=== PATIENT | male | born 1950 | race Caucasian/White ===

== ENCOUNTER 2017-09-24 18:24 | Emergency (ER) | payer OTHER ==
--- OUTSIDE RECORDS SUMMARY | 2017-09-24 18:28 | XMS REPORT ---
:1950 External Reference #:[id number] Author Organization [facility] Address [address] [address] Phone [phone] Care Team Providers Name Role Phone Robi Hays MD Primary Care Physician Unavailable Payers Type Date Identification Numbers Payment Provider Subscriber Health Maintenance Policy Number: P Health [employer] (HMO) [id number] Hmo PayID: [id number] Attn Hmo Claims Dept [address] [place] [address] Problems Description No Information Family History Date Family Member(s) Problem(s) Comments General Diabetes Type II Maternal Grandfather Mother Diabetes Type II Social History Type Date Description Comments Occupation Retired ETOH Use Denies alcohol use Smoking Patient has never smoked Recreational Drug Use Denies Drug Use Exercise Type/Frequency Exercises sporadically Allergies, Adverse Reactions, Alerts Date Description Reaction Status Severity Comments 09/10/2017 NKDA active Medications Medication Date Status Form Strength Qnty SIG Indications Ordering Provider Fenofibrate / Active Tablets 160mg 1 by mouth Unknown 0000 every day Lantus / Active Solution 100Unit/ML 24 units Unknown 0000 as directed Metformin HCL / Active Tablets 1000mg 1 by mouth Unknown 0000 twice a day Perindopril / Active Tablets 8mg 1 tab po Unknown Erbumine 0000 qd Simvastatin / Active Tablets 40mg take 1 Unknown 0000 tablet by mouth at bedtime Victoza / Active Solution 18mg/3ML inject 1.8 Unknown 0000 Pen-Inject mg daily Vitamin D3 / Active Tablets 2000 1 by mouth Unknown Complete 0000 every day Acetaminophen 00/00/ Hx Tablets 500mg 1 tab po Unknown 0000 - q6hrs as 2017 Aspirin Adult / Hx Tablets DR 81mg 1 by mouth Unknown Low Dose 0000 - every day 2017 Sildenafil / Hx Tablets 20mg 1 by mouth Unknown Citrate 0000 - po qd as 2017 Vital Signs Date Vital Result Comment 09/13/2017 Height 74 inches 6'2" Weight 296.12 lb Heart Rate 88 /min BP Systolic Sitting 134 mmHg BP Diastolic Sitting 72 mmHg Respiratory Rate 16 /min BMI (Body Mass Index) 38.0 kg/m2 Results Description No Information Procedures Description No Information Plan of Care Future Appointment(s):03/22/2018 8:45 am - Alfonzo Richard M.D. at [facility]09/13/2017 - Alfonzo Richard M.D.G31.84 Mild cognitive impairment, so statedNew Labs:TSH (Thyroid Stim Horm)Free T4 (Free Thyroxine)T3 TotalFollow up:6 months
--- NOTE | 2017-09-24 19:01 | UC ---
Respiratory Complaint HPI - HPI Summary HPI Summary: Patient urgent care this afternoon with harsh cough awakening the night coughing. - History of Current Complaint Chief Complaint: UCRespiratory Stated Complaint: DIFFICULTY BREATHING,COUGH Time Seen by Provider: 09/24/17 18:53 Hx Obtained From: Patient Onset/Duration: Sudden Onset, Lasting Days - 1, Still Present Timing: Constant Pain Intensity: 0 Character: Cough: Productive Aggravating Factors: Nothing Alleviating Factors: Nothing Associated Signs And Symptoms: Positive: Pleuritic Chest Pain, URI - Allergies/Home Medications Allergies/Adverse Reactions: Allergies Allergy/AdvReac Type Severity Reaction Status Date / Time No Known Allergies Allergy Verified 09/24/17 18:36 Home Medications: Home Medications Cholecalciferol (Vitamin D3) [Vitamin D3] 2,000 unit PO DAILY 09/24/17 [History Confirmed 09/24/17] Fenofibrate Nanocrystallized [Triglide] 160 mg PO DAILY 09/24/17 [History Confirmed 09/24/17] Glimepiride 4 mg PO DAILY 09/24/17 [History Confirmed 09/24/17] Insulin GLARGINE(*) [Lantus(*)] 0 units SUBCUT Q24H 09/24/17 [History Confirmed 09/24/17] Liraglutide [Victoza 3-Ju] 18 mg SC DAILY 09/24/17 [History Confirmed 09/24/17] Perindopril Erbumine 8 mg PO DAILY 09/24/17 [History Confirmed 09/24/17] Pyridoxine HCl (Vitamin B6) [Vitamin B-6] 25 mg PO DAILY 09/24/17 [History Confirmed 09/24/17] Simvastatin [Zocor] 40 mg PO DAILY 09/24/17 [History Confirmed 09/24/17] metFORMIN* [Glucophage 1000 MG TAB *] 1,000 mg PO BID 09/24/17 [History Confirmed 09/24/17] PMH/Surg Hx/FS Hx/Imm Hx Previously Healthy: No Endocrine History: Diabetes, Dyslipidemia - Surgical History Surgical History: Yes Surgery Procedure, Year, and Place: 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 BONE FRAGMENTS TAKEN OUT OF RIGHT ELBOW 1987. DEVIATED SEPTUM REPAIR 1997. t&a at age 2 - Family History Known Family History: Positive: None - Social History Occupation: Retired Lives: With Family Alcohol Use: Rare Substance Use Type: None Smoking Status (MU): Never Smoked Tobacco Review of Systems Constitutional: Negative Skin: Negative Eyes: Negative ENT: Negative Respiratory: Cough Cardiovascular: Negative Gastrointestinal: Negative Genitourinary: Negative Motor: Negative Neurovascular: Negative Musculoskeletal: Negative Neurological: Negative Psychological: Negative Is Patient Immunocompromised?: No All Other Systems Reviewed And Are Negative: Yes Physical Exam Triage Information Reviewed: Yes Appearance: Well-Appearing, No Pain Distress, Obese Vital Signs: Initial Vital Signs Temp 97.7 F 09/24/17 18:30 Pulse 84 09/24/17 18:30 Resp 16 09/24/17 18:30 BP 125/63 09/24/17 18:30 Pulse Ox 99 09/24/17 18:30 Vital Signs Reviewed: Yes Eye Exam: Normal Eyes: Positive: Conjunctiva Clear ENT Exam: Normal ENT: Positive: Normal ENT inspection, Hearing grossly normal, Pharynx normal, Nasal congestion, TMs normal, Uvula midline. Negative: Nasal drainage, Tonsillar swelling, Tonsillar exudate, Trismus, Muffled voice, Hoarse voice, Dental tenderness, Sinus tenderness Dental Exam: Normal Neck exam: Normal Neck: Positive: Supple, Nontender Respiratory Exam: Normal Respiratory: Positive: Chest non-tender, Lungs clear, Normal breath sounds, No respiratory distress, No accessory muscle use Cardiovascular Exam: Normal Cardiovascular: Positive: RRR, No Murmur, Pulses Normal, Brisk Capillary Refill Musculoskeletal Exam: Normal Musculoskeletal: Positive: Strength Intact, ROM Intact, No Edema Neurological Exam: Normal Neurological: Positive: Alert, Muscle Tone Normal Psychological Exam: Normal Skin Exam: Normal UC Diagnostic Evaluation - Laboratory O2 Sat by Pulse Oximetry: 99 Respiratory Course/Dx - Course Course Of Treatment: Robitussin with codeine for cough, albuterol when necessary for bronchospastic cough, may start Zithromax should symptoms worsen or fail to improve. Follow with primary care doctor - Differential Dx/Diagnosis Provider Diagnoses: Bronchitis Discharge - Sign-Out/Discharge Documenting (check all that apply): Discharge - Discharge Plan Condition: Stable Disposition: HOME Prescriptions: Albuterol HFA INHALER* [Ventolin HFA Inhaler*] 2 puff INH Q4H PRN #1 mdi PRN Reason: cough/wheeze Azithromycin TAB* [Zithromax TAB (Z-JU) 250 mg #6 tabs] 2 tab PO .TODAY, THEN 1 DAILY #1 ju guaiFENesin/CODIEN 100MG-10MG* [Robitussin AC 100Mg-10Mg*] 5 - 10 ml PO Q4H PRN #120 udc MDD 40ml PRN Reason: cough Patient Education Materials: How to Use a Metered-Dose Inhaler (ED), Acute Bronchitis (ED) Referrals: Robi Hays MD [Primary Care Provider] - If Needed - Billing Disposition and Condition Condition: STABLE Disposition: HOME
[2017-09-24 19:17] VITALS: BP 125/63
== END 2017-09-24 19:23 | disposition home or self-care (01) ==
LOC: UCEAST 18:24
DX: J40 Bronchitis, not specified as acute or chronic (principal); E11.9 Type 2 diabetes mellitus without complications; Z79.4 Long term (current) use of insulin; Z79.84 Long term (current) use of oral hypoglycemic drugs; E78.5 Hyperlipidemia, unspecified; Z89.421 Acquired absence of other right toe(s)
CPT/HCPCS: 99212; G0463

== ENCOUNTER 2018-07-02 09:53 | Emergency (ER) | payer OTHER ==
[2018-07-02 11:17] VITALS: BP 146/74
--- NOTE | 2018-07-02 12:49 | UC ---
Respiratory Complaint HPI - HPI Summary HPI Summary: Started getting sore throat 2-3 days ago, now coughing with mild production. Denies fever or trouble breathing. Had respiratory illness a year ago that got really bad, worried about that happening again. - History of Current Complaint Chief Complaint: UCRespiratory Stated Complaint: URI Time Seen by Provider: 07/02/18 10:46 Hx Obtained From: Patient Onset/Duration: Gradual Onset, Lasting Days Timing: Constant Severity Initially: Mild Severity Currently: Mild Pain Intensity: 0 Character: Cough: Nonproductive Aggravating Factors: Deep Breaths, Recumbent Position Alleviating Factors: Nothing Associated Signs And Symptoms: Positive: Nasal Congestion. 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 BONE FRAGMENTS TAKEN OUT OF RIGHT ELBOW 1987. DEVIATED SEPTUM REPAIR 1997. t&a at age 2 - Family History Known Family History: Positive: Diabetes - Social History Occupation: Retired Lives: With Family Alcohol Use: Rare Substance Use Type: None Smoking Status (MU): Never Smoked Tobacco Review of Systems All Other Systems Reviewed And Are Negative: Yes Constitutional: Positive: Negative Skin: Positive: Negative Eyes: Positive: Negative ENT: Positive: Sore Throat Respiratory: Positive: Cough Cardiovascular: Positive: Negative Gastrointestinal: Positive: Negative Genitourinary: Positive: Negative Motor: Positive: Negative Neurovascular: Positive: Negative Musculoskeletal: Positive: Negative Neurological: Positive: Negative Psychological: Positive: Negative Is Patient Immunocompromised?: No Physical Exam Triage Information Reviewed: Yes Appearance: Well-Appearing, No Pain Distress, Well-Nourished Vital Signs: Initial Vital Signs Temp 96.8 F 07/02/18 10:14 Pulse 73 07/02/18 10:14 Resp 18 07/02/18 10:14 BP 146/74 07/02/18 10:14 Pulse Ox 100 07/02/18 10:14 Vital Signs Reviewed: Yes Eye Exam: Normal Eyes: Positive: Conjunctiva Clear ENT: Positive: Hearing grossly normal, Nasal congestion, Nasal drainage Dental Exam: Normal Neck exam: Normal Neck: Positive: Supple, Nontender, No Lymphadenopathy Respiratory Exam: Normal Respiratory: Positive: Chest non-tender, Lungs clear, Normal breath sounds, No respiratory distress, No accessory muscle use Cardiovascular Exam: Normal Cardiovascular: Positive: RRR, No Murmur Musculoskeletal Exam: Normal Neurological Exam: Normal Neurological: Positive: Alert Psychological Exam: Normal Skin Exam: Normal UC Diagnostic Evaluation - Laboratory O2 Sat by Pulse Oximetry: 100 Respiratory Course/Dx - Differential Dx/Diagnosis Provider Diagnosis: URI (upper respiratory infection) Discharge - Sign-Out/Discharge Documenting (check all that apply): Patient Departure All imaging exams completed and their final reports reviewed: No Studies - Discharge Plan Condition: Stable Disposition: HOME Prescriptions: Albuterol HFA INHALER* [Ventolin HFA Inhaler*] 1 - 2 puff INH Q4H PRN #1 mdi PRN Reason: cough, tightness Benzonatate CAP* [Tessalon 100 MG CAP*] 100 mg PO QID #30 cap Codeine Phosphate/Guaifenesin [Codeine/Guaifenesin 100-10 mg/5Ml] 5 - 10 ml PO TID #120 ml MDD 30mL Patient Education Materials: Upper Respiratory Infection (ED) Referrals: Robi Hays MD [Primary Care Provider] - 5 Days Additional Instructions: PYBD-ICS-[id number] MEDICINES ARE ONLY INTENDED TO GIVE TEMPORARY RELIEF. YOU SHOULD STOP TAKING ANY COUGH OR COLD PREPARATION THAT FAILS TO MAKE YOU FEEL AT LEAST A LITTLE BIT BETTER. a DECONGESTANT can help with your stuffiness and sinuses. The most effective decongestant is Pseudoephedrine (Sudafed or generic), but you need to ask the pharmacist as it is kept behind the counter. ANTIHISTAMINES are generally NOT helpful in many colds and flus, as they can worsen sore throat and cause dry eyes/mouth and drowsiness. Antihistamines are nearly always found in "nighttime" medicines for their sedating properties ( such as Nyquil). Examples are Diphenhydramine HCL, Doxylamine, and Chlorpheniramine. They may help if you are having profuse clear drainage from the nose. an EXPECTORANT helps thin mucous in the nose and in the chest, making it easier to clear out. Expectorants are in most combination cough/cold remedies and should be taken with plenty of water. Guaifenesin is the most common expectorant , and comes in pill or liquid form (Mucinex is an extended-release form of guaifenesin). a COUGH SUPPRESSANT reduces the body's cough reflex. Dextromethorphan is in over -the-counter products, but sometimes narcotics (such as codeine or hydrocodone) are used for their cough suppressant properties. WHILE THERE IS NO CURE FOR A VIRAL COLD, THERE IS SOME EVIDENCE THAT VITAMIN C, ZINC LOZENGES, AND ECHINACEA CAN HELP SHORTEN THE DURATION OF SYMPTOMS; APPROXIMATE DOSES ARE UP TO 1000mg VITAMIN C PER DAY AND ZINC LOZENGES (MUST BE DISSOLVED IN THE MOUTH AND NOT SWALLOWED) EVERY 2 HOURS WHILE AWAKE. THE DOSE OF ECHINACEA HAS NOT BEEN ESTABLISHED, SO MAKE SURE YOU FOLLOW THE DIRECTIONS ON THE PACKAGE OF ANY PRODUCT YOU CHOOSE TO USE. INHALED BRONCHODILATORS: You have received a prescription for an inhaled bronchodilator -- a medication which stimulates the airways in the lung to dilate. This improves the flow of air in asthma, bronchitis, and emphysema. These medicines have some similarity to adrenaline, and can cause similar side effects: shakiness, racing heart, and a sense of nervousness. These side effects can be reduced with the use of a spacer and usually decrease with time. Use 1-2 puffs up to every 4 hours as needed for wheezing or tightness in your chest. It may be helpful to use preventatively, such as before bedtime or before going outside into cold air. IF YOU FIND THAT YOU ARE CONSISTENTLY NEEDING THE INHALER MORE THAN 6 TIMES PER DAY, PLEASE CALL OR RETURN FOR FURTHER EVALUATION. - Billing Disposition and Condition Condition: STABLE Disposition: Home - Attestation Statements Provider Attestation: I was available for consult. This patient was seen by the RAOUL. The patient was not presented to, seen by, or examined by me. -Amber
== END 2018-07-02 11:12 | disposition home or self-care (01) ==
LOC: UCEAST 09:53
DX: J06.9 Acute upper respiratory infection, unspecified (principal); Z89.421 Acquired absence of other right toe(s)
CPT/HCPCS: 99212; G0463

== ENCOUNTER 2018-10-10 09:35 | Emergency (ER) | payer MEDICARE, OTHER ==
--- OUTSIDE RECORDS SUMMARY | 2018-10-10 09:42 | XMS REPORT | Continuity of Care Document ---
:1950 External Reference #:[id number] Author Name Stacie Bahena Care Team Providers Name Role Phone Robi Hays MD Primary Care Physician Unavailable Payers Date Identification Numbers Payment Provider Subscriber Policy Number: [id number] [facility] Joey (Medicare) [employer] PayID: [id number] [facility] [address] [place] [phone] Advance Directives Description No Information Available Problems Date Description Provider Status Onset: 09/13/2017 Minimal cognitive impairment Alfonzo Richard M.D. Active Family History Date Family Member(s) Observation Comments General Diabetes Type II Maternal Grandfather Mother Diabetes Type II Social History Type Date Description Comments Sex Unknown Occupation Retired Hand Dominance Right-handed ETOH Use Denies alcohol use Tobacco Use Start: Unknown Patient has never smoked Recreational Drug Use Denies Drug Use Smoking Status Reviewed: 09/20/18 Patient has never smoked Exercise Type/Frequency Exercises sporadically Allergies, Adverse Reactions, Alerts Description No Known Drug Allergies Medications Medication Date Status Form Strength Qnty SIG Indications Ordering Provider Donepezil HCL 09/20/ Active Tablets 10mg 30tabs 1 by mouth G31.84 Alfonzo SAubrey 2018 every day Fernando Richard Donepezil HCL 03/22/ Active Tablets 5mg 30tabs 1 every G31.84 Alfonzo S. 2017 day Fernando Richard Fenofibrate / Active Tablets 160mg 1 by [...] 0000 tablet by mouth at bedtime Victoza 0000/ Active Solution 18mg/3ML inject 1.8 Unknown 0000 Pen-Inject mg daily Vitamin D3 / Active Tablets 2000 1 by mouth Unknown Complete 0000 every day Glimepiride / Active Tablets 4mg Once daily Unknown 0000 Sildenafil / Active Tablets 20mg As Unknown Citrate 0000 needed.. Acetaminophen / Hx Tablets 500mg 1 tab po Unknown 0000 - q6hrs as 2018 Aspirin Adult / Hx Tablets DR 81mg 1 by mouth Unknown Low Dose 0000 - every day 2017 Sildenafil / Hx Tablets 20mg 1 by mouth Unknown Citrate 0000 - po qd as needed 2018 Immunizations Description No Information Available Vital Signs Date Vital Result Comment 09/20/2018 9:18am Height 74 inches 6'2" Weight 282.00 lb Heart Rate 74 /min BP Systolic 136 mmHg BP Diastolic 72 mmHg BMI (Body Mass Index) 36.2 kg/m2 03/22/2018 8:52am Height 74 inches 6'2" Weight 280.00 lb Heart Rate 72 /min BP Systolic 110 mmHg BP Diastolic 64 mmHg Respiratory Rate 16 /min BMI (Body Mass Index) 35.9 kg/m2 09/13/2017 9:07am Height 74 inches 6'2" Weight 296.12 lb Heart Rate 88 /min BP Systolic Sitting 134 mmHg BP Diastolic Sitting 72 mmHg Respiratory Rate 16 /min BMI (Body Mass Index) 38.0 kg/m2 Results Test Date Facility Test Result H/L Range Note Laboratory test 03/24/2018 [facility] TSH 1.78 mcIU/mL N 0.34- 5.60 1, [address] ([place] [address] Stim Horm) [phone] 1 [id number] Procedures Description No Information Available Encounters Type Date Location Provider Dx Diagnosis Office Visit 03/22/2018 [facility] Alfonzo Morrell G31.84 Mild cognitive 8:45a [facility] Richard M.D. impairment, so stated Office Visit 09/13/2017 [facility] Alfonzo Morrell G31.84 Mild cognitive 9:00a [facility] M.D[facility] impairment, so stated Plan of Treatment Future Appointment(s):03/28/2019 8:45 am - Alfonzo Richard M.D. at [facility]09/20/2018 - Alfonzo Richard M.D.G31.84 Mild cognitive impairment, so statedNew Medication:Donepezil HCL 10 mg - 1 by mouth every dayFollow up:6 MONTHS
[2018-10-10 09:45] VITALS: BP 128/65
--- NOTE | 2018-10-10 10:44 | UC ---
Cardiac HPI - HPI Summary HPI Summary: 67-year-old male 67-year-old male comes in with a chief complaint of left-sided chest pain since he fell onto a bEnch one month ago. Pain is worse with taking a deep breath it's also worse when he lays on it at night. No fevers or chills no upper respiratory tract infection symptoms. No history of pulmonary embolus or deep venous thromboses no calf pain no calf swelling. Does not feel short of breath. Not laying on it decreases the pain. 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 BONE FRAGMENTS TAKEN OUT OF RIGHT ELBOW 1987. DEVIATED SEPTUM REPAIR 1997. t&a at age 2 - Family History Known Family History: Positive: None, Diabetes - Social History Alcohol Use: Rare Substance Use Type: None Smoking Status (MU): Never Smoked Tobacco Review of Systems All Other Systems Reviewed And Are Negative: Yes Constitutional: Positive: Negative Skin: Positive: Negative Eyes: Positive: Negative ENT: Positive: Negative Respiratory: Positive: Negative Cardiovascular: Positive: Chest Pain - SEE HPI Gastrointestinal: Positive: Negative Genitourinary: Positive: Negative. Negative: Hematuria Motor: Positive: Negative Neurovascular: Positive: Negative Musculoskeletal: Positive: Negative Neurological: Positive: Negative Psychological: Positive: Negative Is Patient Immunocompromised?: No Physical Exam Triage Information Reviewed: Yes Appearance: Well-Appearing, No Pain Distress, Well-Nourished Vital Signs: Initial Vital Signs Temp 98 F 10/10/18 09:42 Pulse 66 10/10/18 09:42 Resp 16 10/10/18 09:42 BP 128/65 10/10/18 09:42 Pulse Ox 100 10/10/18 09:42 Vital Signs Reviewed: Yes Eye Exam: Normal Eyes: Positive: Conjunctiva Clear Neck exam: Normal Neck: Positive: Supple Respiratory: Positive: Lungs clear, Normal breath sounds, No respiratory distress, Other: - MILD TENDERNESS TO PALPATION LEFT LATERAL CHEST. Cardiovascular: Positive: RRR Abdomen Description: Positive: Nontender, Soft. Negative: CVA Tenderness (R), CVA Tenderness (L) Musculoskeletal Exam: Normal Musculoskeletal: Positive: Strength Intact, ROM Intact, No Edema, Other: - NO CALF TENDERNESS TO PALPATION Neurological Exam: Normal Neurological: Positive: Alert, Muscle Tone Normal Psychological Exam: Normal Psychological: Positive: Normal Response To Family, Age Appropriate Behavior Skin Exam: Normal - Assessment/Plan Course Of Treatment: Patient Name: SHOAIB PEREZ Medical Record#: [id number] Ordering Physician: Soham Blair MD Acct.#: [id number] : 1950 Age: 67 Sex: M Location: [facility] Exam Date: 10/10/18 1038 ADM Status: REG ER Order Information: RIBS LT UNI W/PA CH MIN 3 VWS Accession Number: [id number] CPT: 56718 HISTORY: PAIN LT LAT RIBS SINCE FALL 1 M AGO COMPARISONS: None relevant available at the time of dictation. VIEWS: 8, Frontal view of the chest with frontal and oblique views of the left hemithorax FINDINGS: There is no displaced rib fracture or pneumothorax. The visualized lungs are clear. IMPRESSION: NO DISPLACED RIB FRACTURE OR PNEUMOTHORAX <Electronically signed by Gilberto Sanchez MD in OV> 10/10/18 1104 I discussed the x-ray report with the patient and his . Patient has no calf pain or calf tenderness or history of deep venous thrombosis or pulmonary embolus. There is no sign of pneumonia and no signs of infection. We discussed the different possibilities such as pulmonary embolus which by history is not likely. The plan at this time is to take ibuprofen as needed. Follow-up his primary care doctor if not completely improved. Get reevaluated if he worsens or has any other questions or concerns. - Clinical Impression Provider Diagnosis: Rib pain on left side Discharge - Sign-Out/Discharge Documenting (check all that apply): Patient Departure All imaging exams completed and their final reports reviewed: Yes - Discharge Plan Condition: Stable Disposition: HOME Patient Education Materials: Rib Contusion (ED) Referrals: Robi Hays MD [Primary Care Provider] - Additional Instructions: FOLLOW UP WITH YOUR DOCTOR IF NOT COMPLETELY IMPROVED. GET REEVALUATED SOONER IF YOUR CONDITION WORSENS; PAIN, SHORTNESS OF BREATH, FEVER, YOU FEEL ILL OR ANY QUESTIONS OR CONCERNS. - Billing Disposition and Condition Condition: STABLE Disposition: Home
== END 2018-10-10 11:45 | disposition home or self-care (01) ==
LOC: UCEAST 09:35
DX: R07.81 Pleurodynia (principal); E11.9 Type 2 diabetes mellitus without complications; E78.5 Hyperlipidemia, unspecified
CPT/HCPCS: 99211; G0463

== ENCOUNTER 2018-10-24 10:17 | Emergency (ER) | payer MEDICARE ==
[2018-10-24 11:10] VITALS: BP 144/64
--- NOTE | 2018-10-24 12:31 | UC ---
Lower Extremity/Ankle HPI - HPI Summary HPI Summary: 67 year old male with history of DM presents with swelling, redness of great toe, right. Noted toe nail was falling off after putting on boot this AM. 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 Denies injury/ trauma. - History of Current Complaint Chief Complaint: UCLowerExtremity Stated Complaint: rt toe injury type 2 diabetic Time Seen by Provider: 10/24/18 11:25 Hx Obtained From: Patient Onset/Duration: Sudden Onset, Lasting Hours Severity Initially: Mild Severity Currently: Mild Pain Intensity: 0 Pain Scale Used: 0-10 Numeric Aggravating Factor(s): Nothing Able to Bear Weight: Yes - Allergies/Home Medications Allergies/Adverse Reactions: Allergies Allergy/AdvReac Type Severity Reaction Status Date / Time No Known Allergies Allergy Verified 10/24/18 11:09 PMH/Surg Hx/FS Hx/Imm Hx Previously Healthy: No - DM II - Surgical History Surgical History: Yes Surgery Procedure, Year, and Place: 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 BONE FRAGMENTS TAKEN OUT OF RIGHT ELBOW 1987. DEVIATED SEPTUM REPAIR 1997. t&a at age 2 - Family History Known Family History: Positive: None, Diabetes - Social History Alcohol Use: Rare Substance Use Type: None Smoking Status (MU): Never Smoked Tobacco Review of Systems All Other Systems Reviewed And Are Negative: Yes Constitutional: Positive: Negative Skin: Positive: Rash, Other - Greater right toenail avulsion, no bleeding Is Patient Immunocompromised?: No Physical Exam Triage Information Reviewed: Yes Appearance: Well-Appearing, No Pain Distress, Well-Nourished Vital Signs: Initial Vital Signs Temp 98.6 F 10/24/18 11:07 Pulse 68 10/24/18 11:07 Resp 18 10/24/18 11:07 BP 144/64 10/24/18 11:07 Pulse Ox 100 10/24/18 11:07 Vital Signs Reviewed: Yes Eyes: Positive: Conjunctiva Clear Musculoskeletal: Positive: Strength Intact, ROM Intact, Edema @ - R great toe Neurological Exam: Normal Neurological: Positive: Alert, Muscle Tone Normal Psychological Exam: Normal Skin: Positive: Other - boggy erythematous skin over great toe, right, nail lifted from nail bed , no hematoma, no bleeding, toenail attached at nailbed, non tedner to palpation. erythema, induration extending to MCP with small blistered seen medial MCP Lower Extremity Course/Dx - Course Course Of Treatment: X-ray obtained, concerning for osteomyelitis of R great toe, ORtho called, will see in clinic Weds for further work up / evaluation, abx given. Patient made aware, verbal voiced understanding. - Differential Dx/Diagnosis Differential Diagnosis/HQI/PQRI: Osteomyelitis, Phlebitis Provider Diagnosis: Osteomyelitis Discharge - Sign-Out/Discharge Documenting (check all that apply): Patient Departure All imaging exams completed and their final reports reviewed: Yes - Discharge Plan Condition: Fair Disposition: HOME Prescriptions: Ciprofloxacin [Cipro 500 MG/5 ML SUSP] 500 mg PO BID #20 ml Silver Sulfadiazine [Silvadene] 10 gm TP DAILY #1 tube Patient Education Materials: Osteomyelitis (ED) Referrals: Robi Hays MD [Primary Care Provider] - Additional Instructions: - Antibiotics as directed - Follow up with orthopedics for evaluation and further testing/ treatment - Keep food elevated as much as possible - keep bandage over toe nail to prevent further trauma - Silver sulfadene cream to external toe for topical treatment - Billing Disposition and Condition Condition: FAIR Disposition: Home
== END 2018-10-24 12:42 | disposition home or self-care (01) ==
LOC: UCEAST 10:17
DX: E11.69 Type 2 diabetes mellitus with other specified complication (principal); M86.8X8 Other osteomyelitis, other site; S91.201A Unspecified open wound of right great toe with damage to nail, initial encounter; X58.XXXA Exposure to other specified factors, initial encounter; Y92.9 Unspecified place or not applicable; E11.40 Type 2 diabetes mellitus with diabetic neuropathy, unspecified; Z89.431 Acquired absence of right foot
CPT/HCPCS: 99212; G0463

== ENCOUNTER 2019-03-21 17:46 | Emergency (ER) | payer MEDICARE ==
--- OUTSIDE RECORDS SUMMARY | 2019-03-21 17:54 | XMS REPORT | Summary of Care ---
:1950 Author Organization [facility] Address [address] [place] [address] Care Team Providers Name Role Phone None, [place] Primary Care Provider Unavailable Reason for Visit Reason Comments Establish Care Encounter Details Date Type Department Care Team Description 02/15/2019 Office Visit [facility], Establishing care with new doctor, encounter for (Primary Dx); Practice Carole Motta MD Type 2 diabetes mellitus with right eye affected by mild nonproliferative retinopathy without macular edema, with long-term current use of insulin ([facility]); [address] Mild dementia; [place] [address] [place] [address] Controlled type 2 diabetes with neuropathy ([facility]); [phone] Erectile dysfunction, unspecified erectile dysfunction type; Essential hypertension; Mixed hyperlipidemia; Sciatica, unspecified laterality; Need for vaccination Allergies No Known Allergiesdocumented as of this encounter (statuses as of 02/15/2019) Medications Medication Sig Dispensed Refills Start Date End Date Status cholecalciferol Take 1,000 0 Active (VITAMIN D) 1000 Units by units Oral Tab mouth. donepezil (ARICEPT) Take 5 mg by 0 Active 5 MG Oral Tab mouth EVERY BEDTIME. fenofibrate 160 MG Take 160 mg 0 Active Oral Tab by mouth. glimepiride (AMARYL) Take 4 mg by 0 Active 4 MG Oral Tab mouth EVERY MORNING. GLARGINE insulin, Inject 24 0 Active LONG-Acting, Units (LANTUS) 100 UNIT/ML beneath the Subcutaneous skin EVERY Solution BEDTIME. Memantine HCl 28 x 5 Take by 0 Active MG & 21 x 10 MG Oral mouth. Tab metFORMIN HCL Take by 0 Active (FORTAMET) 1000 MG mouth. Oral TABLET SR 24 HR MULTIPLE VITAMIN PO Take by 0 Active mouth. naproxen (NAPROSYN) Take 500 mg 0 Active 500 MG Oral Tab by mouth TWICE DAILY. Perindopril Erbumine Take by 0 Active 8 MG Oral Tab mouth. Sildenafil Citrate Take by 0 Active 20 MG Oral Tab mouth. simvastatin (ZOCOR) Take 80 mg 0 Active 80 MG Oral Tab by mouth EVERY BEDTIME. Liraglutide Inject 1.8 0 Active (VICTOZA) 18 MG/3ML mg beneath Subcutaneous the skin. Solution Pen-injector simvastatin (ZOCOR) Take 40 mg 0 Discontinued 40 MG Oral Tab by mouth 9 (Duplicate EVERY Order) BEDTIME. documented as of this encounter (statuses as of 02/15/2019) Active Problems Problem Noted Date Type 2 diabetes mellitus with right eye affected by mild nonproliferative retinopathy without macular edema, with long-term current use of insulin Mild dementia 02/15/2019 Controlled type 2 diabetes with neuropathy 02/15/2019 Erectile dysfunction 02/15/2019 Essential hypertension 02/15/2019 Mixed hyperlipidemia 02/15/2019 Sciatica 02/15/2019 documented as of this encounter (statuses as of 02/15/2019) Resolved Problems Problem Noted Date Resolved Date Establishing care with new doctor, encounter for 02/15/2019 02/15/2019 documented as of this encounter (statuses as of 02/15/2019) Immunizations Name Administration Dates Next Due PNEUMOCOCCAL POLYSACCHARIDE VACCINE 02/15/2019 Pneumococcal Conjugate Vaccine 01/22/2017 TDAP Vaccine 03/21/2018 documented as of this encounter Social History Tobacco Use Types Packs/Day Years Used Date Never Smoker Smokeless Tobacco: Never Used Comments: occasional cigar Alcohol Use Drinks/Week oz/Week Comments Yes rare Alcohol Habits Answer Date Recorded How often do you have a drink containing alcohol? Monthly or less 02/15/2019 How many drinks containing alcohol do you have on a Not asked typical day when you are drinking? How often do you have six or more drinks on one Not asked occasion? Physical Activity Answer Date Recorded On average, how many days per week do you engage in moderate to 3 days 2018 strenuous exercise (like walking fast, running, jogging, dancing, swimming, biking, or other activities that cause a light or heavy sweat)? On average, how many minutes do you engage in exercise at this 60 min 2018 level? Sex Assigned at Date Recorded Not on file Job Start Date Occupation Industry Not on file Not on file Not on file Travel History Travel Start Travel End No recent travel history available. documented as of this encounter Last Filed Vital Signs Vital Sign Reading Time Taken Comments Blood Pressure 118/80 02/15/2019 5:12 PM EDT Pulse 76 02/15/2019 5:12 PM EDT Temperature - - Respiratory Rate - - Oxygen Saturation 98% 02/15/2019 5:12 PM EDT Inhaled Oxygen Concentration - - Weight 130.2 kg (287 lb) 02/15/2019 5:12 PM EDT Height 185.4 cm (6' 1") 02/15/2019 5:12 PM EDT Body Mass Index 37.87 02/15/2019 5:12 PM EDT documented in this encounter Patient Instructions Patient InstructionsCarole Hilliard MD - 02/15/2019 5:00 PM EDTWelcome to [facility]. I encourage you to sign up for [facility] for on-line access. I ordered fasting laboratory tests and will send you the results. We gave you a Pneumovax vaccine today. I recommend a influenza vaccine in March. I recommend Shingrix when available. Follow up in 3 months and please do an A1C about a week prior I reviewed your records from Dr Hays and your [facility] neurologist today at your visit. DIET AND EXERCISE: Exercise is recommended 150 minutes weekly: 30 minutes five days a week of moderate exercise such as walking. In addition is it recommended you have two days weekly of working all your major muscle groups (arms, legs) such as with weight lifting or other exercise. I recommend a well balanced healthy diet, portion control, drink plenty of fluids. The Mediterranean diet is an excellent diet. Be sure to get adequate sleep at night, 8 hours. If you cannot make an appointment please call to cancel 24 hours in advance so that appointment timecan be made available for another person. documented in this encounter Progress Notes Carole Hilliard MD - 02/15/2019 5:00 PM EDT Nursing Notes: Anna Marie Dumont LPN 02/15/2019 5:18 PM Signed Chief Complaint Patient presents with Establish Care Customer Marketing Assistant: Dr Hays in the past, now UR Dr Trae Sultana Neurologist: Dr Jose Manuel carlin, Dr Palacios [facility] Linux Systems Engineer: Dr Corona, [facility] Child Psychiatrist: Dr Ray Neurosurgeon: Dr Sow, spinal stenosis. Chief Complaint: Ye Parikh is a 68-y.o. male who presents for Establishment of care visit. History of Present Illness: Prior PCP Dr Hays Primary concerns today: Establishing care He has diabetes, is being [facility] at [facility] for newly diagnosed dementia. 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 Hx of diabetic foot ulcer right large toe Hx of osteomyelitis right large toe, resolved Mild dementia Neuropathy Retinopathy due to secondary diabetes (HCC) Spinal stenosis Past Surgical History: Procedure Laterality Date COLONOSCOPY 2013 normal, 10 yr follow up TOE AMPUTATION right second toe TONSILLECTOMY UNLISTED PROCEDURE,MUSCULOSKELE right elbow fragments removed. No current outpatient medications on file as of 02/15/2019. No current facility-administered medications on file as of 02/15/2019. No Known Allergies Social History Socioeconomic History Marital status: Spouse name: Not on file Number of children: Not on file Years of education: Not on file Highest education level: Not on file Occupational History Not on file Social Needs Financial resource strain: Not on file Food insecurity: Worry: Not on file Inability: Not on file Transportation needs: Medical: Not on file Non-medical: Not on file Tobacco Use Smoking status: Never Smoker Smokeless tobacco: Never Used Tobacco comment: occasional cigar Substance and Sexual Activity Alcohol use: Yes Frequency: Monthly or less Comment: rare Drug use: Never Sexual activity: Yes Partners: Female Lifestyle Physical activity: Days per week: 3 days Minutes per session: 60 min Stress: Not on file Relationships Social connections: Talks on phone: Not on file Gets together: Not on file Attends mormon service: Not on file Active member of club or organization: Not on file Attends meetings of clubs or organizations: Not on file Relationship status: Not on file Intimate partner violence: Fear of current or ex partner: Not on file Emotionally abused: Not on file Physically abused: Not on file Forced sexual activity: Not on file Other Topics Concern Not on file Social History Narrative 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 Lives with 2 dogs Family History Problem Relation Age of Onset Diabetes Mother Cancer Father Diabetes Daughter prediabetes Diabetes Maternal Grandfather Heart Maternal Grandfather No Known Problems Daughter No Known Problems Daughter Health Maintenance Topic Date Due HEMOGLOBIN A1C 1950 DEPRESSION SCREENING 1962 FOOT EXAM 1968 ZOSTER IMMUNIZATION SERIES (1 of 2) 2000 COLONOSCOPY SCREENING 2000 FALL RISK ASSESSMENT 11/02/2015 PNEUMOCOCCAL 65+YRS (1 of 2 - PCV13) 11/02/2015 INFLUENZA VACCINE (1) 02/19/2019 Diabetic Eye Exam 02/08/2020 LIPID DISORDER SCREENING 02/16/2020 HPV IMMUNIZATION SERIES Aged Out MENINGOCOCCAL VACCINE IMM Aged Out Review Of Systems Review of Systems - General ROS: negative for - chills or fever, unexpected weight changes ENT ROS: negative for - headaches, nasal congestion, nasal discharge, sinus pain , sore throat or visual changes Respiratory ROS: negative for - cough, hemoptysis or shortness of breath Cardiovascular ROS: negative for - chest pain, dyspnea on exertion, edema or palpitations Gastrointestinal ROS: no abdominal pain, change in bowel habits, or black or bloody stools Genito-Urinary ROS: no dysuria, trouble voiding, or hematuria Neuro: denies headache, focal weakness, numbness Psych: Denies depression PHYSICAL EXAMINATION: BP 118/80 (BP Location: Right arm, Patient Position: Sitting) | Pulse 76 | Ht 6' 1" (1.854 m) | Wt 287 lb (130.2 kg) | SpO2 98% | BMI 37.87 kg/m Physical Examination: General appearance - alert, well appearing, and in no distress Mental status - alert, oriented to person, place, and time, normal mood, behavior, speech, dress, motor activity, and thought processes Eyes - pupils equal and reactive, extraocular eye movements intact, sclera anicteric Ears - bilateral TM's and external ear canals normal Neck - supple, no cervical or supraclavicular adenopathy, carotids upstroke normal bilaterally, no bruits, thyroid exam: thyroid is normal in size without nodules or tenderness, no neck masses palpated. Chest/Lungs - clear to auscultation, no wheezes, rales or rhonchi, symmetric air entry, good aeration Heart - normal rate, regular rhythm, normal S1, S2, no murmurs, rubs, clicks or gallops Abdomen - soft, non tender on palpation, nondistended, no masses or hepatosplenomegaly, bowel soundsnormal, normal to percussion, no guarding or rebound. No costervertebral angle tenderness Neurological - alert, oriented, normal speech, no gross focal findings or movement disorder noted Extremities - dorsalis pedis pulses normal, no pedal edema, no clubbing or cyanosis Left foot Diabetic foot exam: Visual exam: normal Sensory: Filament test: absent Pulse: a pulse was present Right foot diabetic exam Visual exam: normal and except second toe is amputated Sensory: Filament test: absent Pulse: a pulse was present Depression Screening Over the last 2 weeks, have you been feeling down, depressed, anxious, or hopeless?: Not at all Over the past 2 weeks, have you felt little interest or pleasure in doing things ?: Not at all Denies falls ASSESSMENT/PLAN: Establishment of care. Health maintenance recommendations and screening discussed. ICD-9-CM ICD-10-CM 1. Establishing care with new doctor, encounter for V65.8 Z76.89 2. Type 2 diabetes mellitus with right eye affected by mild nonproliferative retinopathy without macular edema, with long-term current use of insulin (HCC) 250.50 E11.3291 MICROALBUMIN, RANDOM URINE W/CREATININE 362.04 Z79.4 GLYCOHEMOGLOBIN A1C V58.67 GLYCOHEMOGLOBIN A1C MICROALBUMIN, RANDOM URINE W/ CREATININE 3. Mild dementia 294.20 F03.90 4. Controlled type 2 diabetes with neuropathy (HCC) 250.60 E11.40 GLYCOHEMOGLOBIN A1C 357.2 5. Erectile dysfunction, unspecified erectile dysfunction type 607.84 N52.9 6. Essential hypertension 401.9 I10 COMPREHENSIVE METABOLIC PANEL LIPID PROFILE 7. Mixed hyperlipidemia 272.2 E78.2 LIPID PROFILE 8. Sciatica, unspecified laterality 724.3 M54.30 9. Need for vaccination V05.9 Z23 [place] PNEUMOVAX(DX CODE Z23) Last A1C with Dr Hays was 7.5 in October. Repeat laboratory tests ordered as above, now and plan repeat A1C in 3 months. Consider stopping fenofibrate if lipids are controlled as use of this with statins increased risk ofliver disease. No med changes today. Pneumovax given today. DIET AND EXERCISE: Exercise is recommended 150 minutes weekly: 30 minutes five days a week of moderate exercise such as walking. In addition is it recommended you have two days weekly of working all your major muscle groups (arms, legs) such as with weight lifting or other exercise. Patient Instructions Welcome to [facility]. I encourage you to sign up for e-[facility] for on-line access. I ordered fasting laboratory tests and will send you the results. We gave you a Pneumovax vaccine today. I recommend a influenza vaccine in March. I recommend Shingrix when available. Follow up in 3 months and please do an A1C about a week prior I reviewed your records from Dr Hays and your [facility] neurologist today at your visit. DIET AND EXERCISE: Exercise is recommended 150 minutes weekly: 30 minutes five days a week of moderate exercise such as walking. In addition is it recommended you have two days weekly of working all your major muscle groups (arms, legs) such as with weight lifting or other exercise. I recommend a well balanced healthy diet, portion control, drink plenty of fluids. The Mediterranean diet is an excellent diet. Be sure to get adequate sleep at night, 8 hours. If you cannot make an appointment please call to cancel 24 hours in advance so that appointment timecan be made available for another person. Author: Carole Hilliard MD 02/15/2019 18:10 documented in this encounter Plan of Treatment Date Type Specialty Care Team Description 02/17/2019 Lab Internal Medicine Name Type Priority Associated Diagnoses Order Schedule MICROALBUMIN, RANDOM Lab Routine Type 2 diabetes mellitus Expected: 2018 URINE W/ CREATININE with right eye affected by (Approximate), mild nonproliferative Expires: 08/14/2019 retinopathy without macular edema, with long-term current use of insulin (HCC) GLYCOHEMOGLOBIN A1C Lab Routine Type 2 diabetes mellitus Expected: 2018 with right eye affected by (Approximate), mild nonproliferative Expires: 02/16/2020 retinopathy without macular edema, with long-term current use of insulin (HCC) COMPREHENSIVE METABOLIC Lab Routine Essential hypertension Expected: 2018 PANEL (Approximate), Expires: 02/16/2020 LIPID PROFILE Lab Routine Essential hypertension Expected: 02/15/2019 Mixed hyperlipidemia (Approximate), Expires: 02/16/2020 GLYCOHEMOGLOBIN A1C Lab Routine Type 2 diabetes mellitus Every 12 Weeks for 4 with right eye affected by Occurrences starting mild nonproliferative 02/15/2019 until retinopathy without 02/16/2020 macular edema, with long-term current use of insulin (HCC) Controlled type 2 diabetes with neuropathy (HCC) Health Maintenance Due Date Last Done Comments HEMOGLOBIN A1C 1950 COLONOSCOPY SCREENING 2000 ZOSTER IMMUNIZATION SERIES (1 2000 of 2) INFLUENZA VACCINE (#1) 2019 Diabetic Eye Exam 02/08/2020 02/07/2019 DEPRESSION SCREENING 02/16/2020 02/15/2019 FALL RISK ASSESSMENT 02/16/2020 02/15/2019, 02/15/2019 FOOT EXAM 02/16/2020 02/15/2019, 02/15/2019, 02/15/2019 LIPID DISORDER SCREENING 02/16/2020 02/15/2019 PNEUMOCOCCAL 65+YRS Completed 02/15/2019, 01/22/2017 HPV IMMUNIZATION SERIES Aged Out No longer eligible based on patient's age to complete this topic MENINGOCOCCAL VACCINE IMM Aged Out No longer eligible based on patient's age to complete this topic documented as of this encounter Goals Goal Patient Goal Associated Recent Patient-Stated? Author Type Problems Progress Blood Pressure Blood 118/80 No [place], < 140/90 Pressure (02/15/2019 Carole Motta, 5:12 PM EDT) Note: This is an individualized treatment (blood pressure) goal for Ye Parikh: Displayed above (on the left) is your goal for blood pressure control. Your most recent blood pressure is also shown above, on the right. You should try to achieve blood pressures that are lower than your goal listed above (on the left). Glycohemoglobin A1c < 7.0 Diabetes Carole Aleman MD Note: This is an individualized treatment (diabetes control, HgbA1C) goal for Ye Parikh: Displayed above is your progress towards your HgbA1C goal. Your goal is shown above (on the left); your most recent HgbA1C is shown on the right. Note that lower numbers are better. Weight loss vs. 18 Lifestyle 0 (02/15/2019 5:12 PM No Carole Hilliard mo max (lbs) >= 10 EDT) Note: This is an individualized lifestyle goal for Ye Parikh: Your body mass index (BMI) is more than 30. You should lose weight. A reasonable starting goal is to lose 10 pounds. Displayed above is how many pounds you have lost thus far towards your 10 pound weight loss goal. Keep immunizations current Lifestyle No Carole Hilliard MD Note: This is an individualized lifestyle goal for Ye Parikh: Please be sure to keep up-to-date on recommended immunizations. For example, this would include a yearly influenza vaccine. Immunization status can be seen by looking at the Health Maintenance sections of your [facility], Plan of Care, and any After Visit Summaries. Take all prescribed medications as Self-management No Carole Hilliard MD directed Note: This is an individualized self-management goal for Ye Parikh: Please take all prescribed medications as directed. 1. Do not skip doses. If you cannot afford your medications, talk with your doctor. 2. Use a pill reminder system such as a pill box if needed. Your pharmacist can help you with this. 3. Contact your Pharmacy 5 days before your medication runs out. If you cannot take your medications for any reasons, talk with your doctor. 4. Please bring all of your medication bottles and inhalers (or a list of all your medications/inhalers) with you to every visit. Potential barriers to meeting all of your care plan goals will continue to be addressed on an ongoing basis. documented as of this encounter Procedures Procedure Name Priority Date/Time Associated Diagnosis Comments DIABETES OPH EXAM Routine 02/07/2019 documented in this encounter Results DIABETES OPH EXAM (02/07/2019) OPHTHALMOLOGY Retinopathy (A) No retinopathy [facility] Performing Organization Address City/State/Zipcode Phone Number [facility] [address] [place] [phone] documented in this encounter Visit Diagnoses Diagnosis Establishing care with new doctor, encounter for - Primary Other reasons for seeking consultation Type 2 diabetes mellitus with right eye affected by mild nonproliferative retinopathy without macular edema, with long-term current use of insulin (HCC) Mild dementia Dementia, unspecified, without behavioral disturbance Controlled type 2 diabetes with neuropathy (HCC) Type II or unspecified type diabetes mellitus with neurological manifestations , not stated as uncontrolled Erectile dysfunction, unspecified erectile dysfunction type Essential hypertension Unspecified essential hypertension Mixed hyperlipidemia Sciatica, unspecified laterality Need for vaccination Need for prophylactic vaccination and inoculation against unspecified single disease documented in this encounter Insurance Payer Benefit Plan / Subscriber ID Effective Dates Phone Address Type Group MVP GOLD MEDICARE MVP GOLD MEDICARE xxxxxxxxxxx 2018-Present [facility] documented as of this encounter
--- OUTSIDE RECORDS SUMMARY | 2019-03-21 17:54 | XMS REPORT | Summary of Care ---
:1950 Author Organization [facility] Address 1 [facility] [place] [address] Care Team Providers Name Role Phone Carole Hilliard MD Primary Care Provider Reason for Referral Refer to Department Only (Routine) Status Reason Specialty Diagnoses / Referred By Referred To Procedures Contact Contact Pending Review DERMATOLOGY Diagnoses Skin lesion Carole Hilliard MD [address] [place] [address] Reason for Visit Reason Comments Other 2 growths on Lt side (neck x few weeks and back x few years) Encounter Details Date Type Department Care Team Description 03/08/2019 Office Visit Susannah Hilliard, Skin lesion (Primary Dx); Practice Carole Motta MD Need for vaccination [address] [place] [address] [phone] Allergies No Known Allergiesdocumented as of this encounter (statuses as of 03/08/2019) Medications Medication Sig Dispensed Refills Start Date End Date Status cholecalciferol (VITAMIN Take 1,000 Units 0 Active D) 1000 units Oral Tab by mouth. donepezil (ARICEPT) 5 MG Take 5 mg by 0 Active Oral Tab mouth EVERY BEDTIME. fenofibrate 160 MG Oral Take 160 mg by 0 Active Tab mouth. glimepiride (AMARYL) 4 Take 4 mg by 0 Active MG Oral Tab mouth EVERY MORNING. GLARGINE insulin, Inject 26 Units 0 Active LONG-Acting, (LANTUS) beneath the skin 100 UNIT/ML Subcutaneous EVERY BEDTIME. Solution Memantine HCl 28 x 5 MG Take by mouth. 0 Active & 21 x 10 MG Oral Tab metFORMIN HCL (FORTAMET) Take by mouth. 0 Active 1000 MG Oral TABLET SR 24 HR MULTIPLE VITAMIN PO Take by mouth. 0 Active naproxen (NAPROSYN) 500 Take 500 mg by 0 Active MG Oral Tab mouth TWICE DAILY. Perindopril Erbumine 8 Take by mouth. 0 Active MG Oral Tab Sildenafil Citrate 20 MG Take by mouth. 0 Active Oral Tab simvastatin (ZOCOR) 80 Take 80 mg by 0 Active MG Oral Tab mouth EVERY BEDTIME. Liraglutide (VICTOZA) 18 Inject 1.8 mg 0 Active MG/3ML Subcutaneous beneath the Solution Pen-injector skin. documented as of this encounter (statuses as of 03/08/2019) Active Problems Problem Noted Date Type 2 diabetes mellitus with right eye affected by mild nonproliferative retinopathy without macular edema, with long-term current use of insulin Mild dementia 02/15/2019 Controlled type 2 diabetes with neuropathy 02/15/2019 Erectile dysfunction 02/15/2019 Essential hypertension 02/15/2019 Mixed hyperlipidemia 02/15/2019 Sciatica 02/15/2019 documented as of this encounter (statuses as of 03/08/2019) Resolved Problems Problem Noted Date Resolved Date Establishing care with new doctor, encounter for 02/15/2019 02/15/2019 documented as of this encounter (statuses as of 03/08/2019) Immunizations Name Administration Dates Next Due Influenza Vaccine 65 Yrs + 03/08/2019 PNEUMOCOCCAL POLYSACCHARIDE VACCINE 02/15/2019 Pneumococcal Conjugate Vaccine [...] engage in exercise at this 60 min 08/28/ 2019 level? Sex Assigned at Date Recorded Not on file Job Start Date Occupation Industry Not on file Not on file Not on file Travel History Travel Start Travel End No recent travel history available. documented as of this encounter Last Filed Vital Signs Vital Sign Reading Time Taken Comments Blood Pressure 130/78 03/08/2019 9:32 AM EDT Pulse 62 03/08/2019 9:32 AM EDT Temperature 36.2 03/08/2019 9:32 AM EDT C (97.2 F) Respiratory Rate - - Oxygen Saturation 99% 03/08/2019 9:32 AM EDT Inhaled Oxygen Concentration - - Weight 132.5 kg (292 lb) 03/08/2019 9:32 AM EDT Height 185.4 cm (6' 1") 03/08/2019 9:32 AM EDT Body Mass Index 38.52 03/08/2019 9:32 AM EDT documented in this encounter Patient Instructions Patient InstructionsCarole Hilliard MD - 03/08/2019 9:20 AM EDTI recommend a good full body skin exam with dermatology and referred you to Dr Fan. We gave you a influenza vaccine today. Keep me posted on any med changes by your tool keeper. documented in this encounter Progress Notes Carole Hilliard MD - 03/08/2019 9:20 AM EDT Nursing Notes: Anna Marie Dumont LPN 03/08/2019 9:41 AM Signed Chief Complaint Patient presents with Other 2 growths on Lt side (neck x few weeks and back x few years) Chief Complaint: Ye Parikh is a 68-y.o. male who presents for growth on neck History of Present Illness/ROS: Patient is here for a left neck lump x a few weeks. Has some lumps on his back a few years. It itches. He is diabetic and has mild dementia, and established care with me 02/15/19 He saw the new tool keeper at [facility] last week, plans to add Jardiance to replace Glimepiride. Review of Systems - General ROS: negative for - chills or fever Dermatological ROS: positive for - mole changes Lab Results Component Value Date GLYCO 8.1 (H) 02/17/2019 Lab Results Component Value Date NA 138 02/17/2019 K 4.5 02/17/2019 CL 102 02/17/2019 CO2 27 02/17/2019 GLUCOSE 239 (H) 02/17/2019 BUN 18 02/17/2019 CREATININE 1.0 02/17/2019 CALCIUM 9.3 02/17/2019 TP 7.3 02/17/2019 ALBUMIN 4.3 02/17/2019 AST 34 02/17/2019 ALT 29 02/17/2019 ALK 60 02/17/2019 TBILI 0.3 02/17/2019 EGFR >60 02/17/2019 Lab Results Component Value Date CHOL 143 02/17/2019 TRIG 115 02/17/2019 HDL 35 (L) 02/17/2019 LDL 85 02/17/2019 LDLHDLRATIO 2.4 02/17/2019 CHOLHDLRATIO 4.1 02/17/2019 Past Medical History: Diagnosis Date Diabetes mellitus [...] TONSILLECTOMY UNLISTED PROCEDURE,MUSCULOSKELE right elbow fragments removed. Current Outpatient Medications: cholecalciferol (VITAMIN D) 1000 units Oral Tab, Take 1,000 Units by mouth., Disp: , Rfl: donepezil (ARICEPT) 5 MG Oral Tab, Take 5 mg by mouth EVERY BEDTIME., Disp: , Rfl: fenofibrate 160 MG Oral Tab, Take 160 mg by mouth., Disp: , Rfl: GLARGINE insulin, LONG-Acting, (LANTUS) 100 UNIT/ML Subcutaneous Solution, Inject 26 Units beneath the skin EVERY BEDTIME., Disp: , Rfl: glimepiride (AMARYL) 4 MG Oral Tab, Take 4 mg by mouth EVERY MORNING., Disp: , Rfl: Liraglutide (VICTOZA) 18 MG/3ML Subcutaneous Solution Pen-injector, Inject 1.8 mg beneath the skin., Disp: , Rfl: Memantine HCl 28 x 5 MG & 21 x 10 MG Oral Tab, Take by mouth., Disp : , Rfl: metFORMIN HCL (FORTAMET) 1000 MG Oral TABLET SR 24 HR, Take by mouth., Disp: , Rfl: MULTIPLE VITAMIN PO, Take by mouth., Disp: , Rfl: naproxen (NAPROSYN) 500 MG Oral Tab, Take 500 mg by mouth TWICE DAILY., Disp: , Rfl: Perindopril Erbumine 8 MG Oral Tab, Take by mouth., Disp: , Rfl: Sildenafil Citrate 20 MG Oral Tab, Take by mouth., Disp: , Rfl: simvastatin (ZOCOR) 80 MG Oral Tab, Take 80 mg by mouth EVERY BEDTIME., Disp: , Rfl: No Known Allergies Social History Socioeconomic History [...] file Gets together: Not on file Attends denominational service: Not on file Active member of [...] Not on file Social History Narrative 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 Lives with 2 dogs Family History Problem Relation Age of Onset Diabetes Mother Cancer Father Diabetes Daughter prediabetes Diabetes Maternal Grandfather Heart Maternal Grandfather No Known Problems Daughter No Known Problems Daughter PHYSICAL EXAMINATION: BP 130/78 (BP Location: Right arm, Patient Position: Sitting) | Pulse 62 | Temp 97.2 F (36.2 C) (Tympanic) | Ht 6' 1" (1.854 m) | Wt 292 lb ( 132.5 kg) | SpO2 99% | BMI 38.52 kg/m Physical Examination: General appearance - alert, well appearing, and in no distress Mental status - alert, oriented to person, place, and time, normal mood, behavior, speech, dress, motor activity, and thought processes Eyes - sclera anicteric Neck - supple, no cervical or supraclavicular adenopathy, carotids upstroke normal bilaterally, no bruits, thyroid exam: thyroid is normal in size without nodules or tenderness, no neck masses palpated. Chest/Lungs - clear to auscultation, no wheezes, rales or rhonchi, symmetric air entry, good aeration Heart - normal rate, regular rhythm, normal S1, S2, no murmurs, rubs, clicks or gallops Skin: 3 mm round raised flesh colored lesion left neck, had a central scab that fell off during exam. This may have been a cyst or insect bite. It remains elevated however. He has many flat nevi, early seborrheic keratoses. I do not see a lesion in the area of his pruritis on his left shoulder blade. I do recommend a good skin check with dermatology ASSESSMENT/PLAN: ICD-9-CM ICD-10-CM 1. Skin lesion 709.9 L98.9 REFER TO DERMATOLOGY 2. Need for vaccination V05.9 Z23 [place] FLU VACCINE 65 YRS + ADMINISTRATION VACCINE SINGLE Patient Instructions I recommend a good full body skin exam with dermatology and referred you to Dr Fan. We gave you a influenza vaccine today. Keep me posted on any med changes by your tool keeper. Author: Carole Hilliard MD 03/08/2019 12:39 documented in this encounter Plan of Treatment Date Type Specialty Care Team Description 05/15/2019 Lab Internal Medicine 05/24/2019 Office Visit [facility] Carole Hilliard MD [address] [place], [place] [id number] [phone] Name Type Priority Associated Diagnoses Order Schedule ADMINISTRATION VACCINE Procedures Routine Need for vaccination Ordered: SINGLE Name Type Priority Associated Diagnoses Order Schedule REFER TO DERMATOLOGY Referral Routine Skin lesion Expected: 03/08/2019, Expires: 03/08/2020 Health Maintenance Due Date Last Done Comments COLONOSCOPY SCREENING 2000 ZOSTER IMMUNIZATION SERIES 2000 (1 of 2) INFLUENZA VACCINE (#1) 2019 HEMOGLOBIN A1C 05/20/2019 02/17/2019 Diabetic Eye Exam 02/08/2020 02/07/2019 DEPRESSION SCREENING 02/16/2020 02/15/2019 FALL RISK ASSESSMENT 02/16/2020 02/15/2019, 02/15/2019 FOOT EXAM 02/16/2020 02/15/2019, 02/15/2019, 02/15/2019, Additional history exists LIPID DISORDER SCREENING 02/18/2020 02/17/2019, 02/15/2019 PNEUMOCOCCAL 65+YRS Completed 02/15/2019, 01/22/2017 HPV IMMUNIZATION SERIES Aged Out No longer eligible based on patient's age to complete this topic MENINGOCOCCAL VACCINE IMM Aged Out No longer eligible based on patient's age to complete this topic documented as of this encounter Goals Goal Patient Goal Associated Recent Patient-Stated? Author Type Problems Progress Blood Pressure Blood 130/78 No [place], < 140/90 Pressure (03/08/2019 Carole Motta, 9:32 AM EDT) Note: This is an individualized treatment (blood pressure) goal for Ye Parikh: Displayed above (on the left) is your goal for blood pressure control. Your most recent blood pressure is also shown above, on the right. You should try to achieve blood pressures that are lower than your goal listed above (on the left). Glycohemoglobin A1c < 7.0 Diabetes 8.1 (02/17/2019 9:27 No Carole Hilliard AM EDT) MD Ángela Note: This is an individualized treatment (diabetes control, HgbA1C) goal for Ye Parikh: Displayed above is your progress towards your HgbA1C goal. Your goal is shown above (on the left); your most recent HgbA1C is shown on the right. Note that lower numbers are better. Weight loss vs. 18 Lifestyle 0 (03/08/2019 9:32 AM No Carole Hilliard mo max (lbs) >= 10 EDT) Note: This is an individualized lifestyle goal for Ye Jl: Your body mass index (BMI) is more [...] ongoing basis. documented as of this encounter Results Not on filedocumented in this encounter Visit Diagnoses Diagnosis Skin lesion - Primary Unspecified disorder of skin and subcutaneous tissue Need for vaccination Need for prophylactic vaccination and inoculation against unspecified single disease documented in this encounter Insurance Payer Benefit Plan / Subscriber ID Effective Dates Phone Address Type Group MVP GOLD MEDICARE MVP GOLD MEDICARE xxxxxxxxxxx 2018-Present [facility] ADVANTAGE ADVANTAGE documented as of this encounter
[2019-03-21 18:29] VITALS: BP 118/67
--- NOTE | 2019-03-21 18:38 | UC ---
Respiratory Complaint HPI - HPI Summary HPI Summary: 68 yo male presents accompanied by , Uzma, with 5 days of intermittently productive cough, sinus pain/pressure/congestion, and a sore throat. Pt suffers from dementia, thus the reliable history is provided by his with him today. She tells me that his symptoms started with a sore throat and progressed to sinus symptoms and an intermittently productive cough. Today says he has only had toast for breakfast to eat and nothing else - states doesn't feel like eating. Today he has been complaining of feeling a tickle in his throat and chest that causes him to cough - coughing relieves this. Tickle is worse at night. Denies fever, chills, SOB, chest pain, rash, abdominal pain, vomiting, dysuria, back pain. - History of Current Complaint Chief Complaint: UCRespiratory Stated Complaint: SOB Time Seen by Provider: 03/21/19 18:38 Hx Obtained From: Patient, Family/Technician [employer] Systems Hx From Patient Unobtainable Due To: Dementia Severity Currently: None Pain Intensity: 0 - Allergies/Home Medications Allergies/Adverse Reactions: Allergies Allergy/AdvReac Type Severity Reaction Status Date / Time No Known Allergies Allergy Verified 03/21/19 18:29 Home Medications: Home Medications Donepezil TAB* [Aricept 5 MG TAB*] 5 mg PO DAILY 03/21/19 [History Confirmed 07/09] Memantine TAB* [Namenda TAB*] 10 mg PO DAILY 03/21/19 [History Confirmed ] Vardiance 10 mg PO DAILY 03/21/19 [History Confirmed 03/21/19] PMH/Surg Hx/FS Hx/Imm Hx Endocrine History: Diabetes Cardiovascular History: Hypertension Neurological History: Dementia - Surgical History Surgical History: Yes Surgery Procedure, Year, and Place: 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 BONE FRAGMENTS TAKEN OUT OF RIGHT ELBOW 1987. DEVIATED SEPTUM REPAIR 1997. t&a at age 2 - Family History Known Family History: Positive: Diabetes - Social History Occupation: Retired Lives: With Family Alcohol Use: Rare Substance Use Type: None Smoking Status (MU): Never Smoked Tobacco Review of Systems All Other Systems Reviewed And Are Negative: No Constitutional: Positive: Negative Skin: Positive: Negative Eyes: Positive: Negative ENT: Positive: Sore Throat, Nasal Discharge, Sinus Congestion, Sinus Pain/ Tenderness Respiratory: Positive: Cough Cardiovascular: Positive: Negative Gastrointestinal: Positive: Negative Genitourinary: Positive: Negative Neurovascular: Positive: Negative Musculoskeletal: Positive: Negative Neurological: Positive: Negative Psychological: Positive: Negative Physical Exam - Summary Physical Exam Summary: GENERAL: NAD. WDWN. No pain distress. SKIN: No rashes, sores, lesions, or open wounds. HEENT: Head: AT/NC Eyes: Conjunctiva clear without inflammation or discharge. Ears: Hearing grossly normal. TMs intact, no bulging, erythema, or edema. Nose: Nasal mucosa pink and moist. NTTP maxillary and frontal sinus. Throat: Posterior oropharynx without exudates, erythema, or tonsillar enlargement. Uvula midline. NECK: Supple. Nontender. No lymphadenopathy. CHEST: Mild wheezing throughout. No r/r. No accessory muscle use. Breathing comfortably and in no distress. CV: RRR. Pulses intact. Cap refill <2seconds NEURO: Alert. PSYCH: Age appropriate behavior. Triage Information Reviewed: Yes Vital Signs: Initial Vital Signs Temp 97.9 F 03/21/19 18:23 Pulse 87 03/21/19 18:23 Resp 22 03/21/19 18:23 BP 118/67 03/21/19 18:23 Pulse Ox 97 03/21/19 18:23 Laboratory Tests 03/21/19 03/21/19 03/21/19 19:19 19:30 19:37 POC Glucose (mg/dL) 134 H POC Urine Color Yellow POC Urine Clarity Clear POC Urine pH 5.0 POC Ur Specif Herman 1.020 POC Urine Protein 1+ A POC Ur Glucose (UA) 3+ A POC Urine Ketones Trace A POC Urine Blood Trace-intact A POC Urine Nitrite Negative POC Urine Bilirubin 1+ A POC Urine Urobilinogen 0.2 POC U Leukocyte Esteras Negative Group A Strep Rapid Negative Vital Signs Reviewed: Yes Diagnostics - Radiology CXR Radiology Interpretation Completed By: ED Physician Summary of Radiographic Findings: No acute process Respiratory Course/Dx - Course Course Of Treatment: CXR wet read negative. UA negative for infection. BG well controlled. POC strep negative. Suspect bronchitis/sinusitis. In the clinic pt was given a duoneb treatment and had good improvement of his breathing. Reported less tickle in his throat and easier to take a deep breath without coughing. Given his dementia and diabetes, will treat with Augmentin and tessalon at this time. Strongly encouraged to f/u with PCP this week for a recheck. Pt and voiced understanding and agree with the plan - Differential Dx/Diagnosis Provider Diagnosis: Bronchitis, Diabetes Discharge ED - Sign-Out/Discharge Documenting (check all that apply): Patient Departure All imaging exams completed and their final reports reviewed: No Studies - Discharge Plan Condition: Stable Disposition: HOME Prescriptions: Amoxicillin/Clavulanate TAB* [Augmentin TAB 875*] 875 mg PO BID #14 tab Benzonatate CAP* [Tessalon 100 MG CAP*] 100 mg PO TID PRN #21 cap PRN Reason: Cough Patient Education Materials: Sinusitis (ED), Acute Cough (ED) Referrals: Carole Hilliard MD [Primary Care Provider] - Additional Instructions: If you develop a fever, shortness of breath, chest pain, new or worsening symptoms - please go to the ED immediately. I recommend that you schedule an appointment for this week with your primary doctor for a recheck of your symptoms. - Billing Disposition and Condition Condition: STABLE Disposition: Home
[2019-03-21] MEDS ORDERED: Albuterol/Ipratropium NEB.SOL* Albuterol 2.5 MG/Ipratropium 0.5 MG 3 ML INH ONE (18:45)
--- NOTE | 2019-03-21 21:49 | UC ---
Course/Dx - Diagnoses Provider Diagnoses: Bronchitis, Diabetes Discharge ED - Sign-Out/Discharge Documenting (check all that apply): Post-Discharge Follow Up All imaging exams completed and their final reports reviewed: No - Discharge Plan Condition: Stable Disposition: HOME Prescriptions: Amoxicillin/Clavulanate TAB* [Augmentin TAB 875*] 875 mg PO BID #14 tab Benzonatate CAP* [Tessalon 100 MG CAP*] 100 mg PO TID PRN #21 cap PRN Reason: Cough Patient Education Materials: Sinusitis (ED), Acute Cough (ED) Referrals: Carole Hilliard MD [Primary Care Provider] - Additional Instructions: If you develop a fever, shortness of breath, chest pain, new or worsening symptoms - please go to the ED immediately. I recommend that you schedule an appointment for this week with your primary doctor for a recheck of your symptoms. - Billing Disposition and Condition Condition: STABLE Disposition: Home
== END 2019-03-21 20:02 | disposition home or self-care (01) ==
LOC: UCEAST 17:46
DX: J40 Bronchitis, not specified as acute or chronic (principal); E11.9 Type 2 diabetes mellitus without complications; R09.81 Nasal congestion; R09.89 Other specified symptoms and signs involving the circulatory and respiratory systems; I10 Essential (primary) hypertension; F03.90 Unspecified dementia, unspecified severity, without behavioral disturbance, psychotic disturbance, mood disturbance, and anxiety
CPT/HCPCS: 71046; 81003; 87651; 99212; A9270-GY; G0463